=== PATIENT | female | born 1950 | race Caucasian/White ===

== ENCOUNTER 2016-12-05 12:38 | Emergency (ER) | payer MEDICARE, OTHER ==
[2016-12-05] MEDS ORDERED: ATORVASTATIN PO (13:03)
[2016-12-05] MEDS ORDERED: LISINOPRIL PO (13:03)
[2016-12-05] MEDS ORDERED: PREDNISONE10 M1 PO (13:34)
== END 2016-12-05 13:54 ==
LOC: EDMED 12:38
DX: T78.40XA Allergy, unspecified, initial encounter (principal); I10 Essential (primary) hypertension; Z79.899 Other long term (current) drug therapy; F17.200 Nicotine dependence, unspecified, uncomplicated
CPT/HCPCS: J7512